=== PATIENT | female | born 1990 | race Two or more races ===

== ENCOUNTER 2017-10-14 21:07 | Emergency (ER) | payer SELFPAY ==
[~2017-10-14] VITALS: Ht 157.5 cm; Wt 65.8 kg
[2017-10-15 02:17] VITALS: BP 136/87
== END 2017-10-15 02:57 | disposition home or self-care (01) ==
LOC: ER 21:07
DX: J02.9 Acute pharyngitis, unspecified (principal)

== ENCOUNTER 2018-10-19 08:15 | Emergency (ER) | payer SELFPAY ==
[~2018-10-19] VITALS: Ht 157.5 cm; Wt 61.2 kg
[2018-10-19 08:54] VITALS: BP 126/76
== END 2018-10-19 10:06 | disposition home or self-care (01) ==
LOC: ER 08:15
DX: J02.0 Streptococcal pharyngitis (principal)

== ENCOUNTER 2020-09-23 08:00 | Emergency (ER) | payer BC, OTHER ==
[~2020-09-23] VITALS: Ht 157.5 cm; Wt 68.0 kg
[2020-09-23 08:10] VITALS: BP 131/97
== END 2020-09-23 18:54 | disposition home or self-care (01) ==
LOC: ER 08:00
DX: R21 Rash and other nonspecific skin eruption (principal)